=== PATIENT | female | born 1960 | race Caucasian/White ===

== ENCOUNTER → 2021-10-10 09:05 | Outpatient (CLI) | payer BC, SELFPAY ==
--- NOTE | ~2021-10-10 | US_ITS ---
EXAMINATION: US venous doppler UE RT DATE: 10/10/2021 09:37 INDICATION: Basilic vein thrombosis. TECHNIQUE: Grayscale images without and with compression and Doppler images of the right upper extrem ity veins were obtained. COMPARISON: None. FINDINGS: The right internal jugular vein, subclavian vein, axillary vein, brachial vein, basilic vein, cephali c vein, radial vein, and ulnar vein are patent. IMPRESSION: 1. Patent right upper extremity veins. No evidence of venous thrombosis. Reviewed, dictated and finalized at location A. ULIZING MACHINE OPERATOR
== END ==
DX: I82.409 Acute embolism and thrombosis of unspecified deep veins of unspecified lower extremity (principal); I82.611 Acute embolism and thrombosis of superficial veins of right upper extremity
CPT/HCPCS: 93971

== ENCOUNTER → 2021-11-29 09:05 | Outpatient (CLI) | payer BC, SELFPAY ==
--- NOTE | ~2021-11-29 | MR_ITS ---
EXAMINATION: MR MRCP wo/w con/w 3D wo ind DATE: 11/29/2021 10:32 INDICATION: Biliary cirrhosis. TECHNIQUE: Magnetic resonance imaging (MRI) of the abdomen was performed without and with 20 mL Multi Yunior intravenous contrast. Sequences included coronal T2-weighted FS FSE, coronal T2-weighted FSE, a xial T1-weighted LAVA, coronal FS FIESTA, axial dual-echo T1-weighted SPGR, coronal lava-FLEX, sagitt al T2-weighted FSE, axial T2-weighted FSE, and axial DWI. Thick-slab T2-weighted FSE images were obta ined for magnetic resonance cholangiopancreatography (MRCP). Maximum intensity projection 3-D reconst ructions of the volumetric data were created by the technologist. Postcontrast sequences included cor onal LAVA-flex and time course of axial T1-weighted LAVA. COMPARISON: None. FINDINGS: ABDOMEN MRI: The liver demonstrates a nodular surface contour and heterogeneous signal intensity, con sistent with cirrhosis. There is cystic biliary duct dilatation in right hepatic lobe with the larges t cyst measuring 1.8 cm. There is no abnormal arterial hyperenhancement to suggest malignancy. Main p ortal vein and left and right portal veins are small. The gallbladder is absent. There is a 12 mm cys t in the head of the pancreas along the expected course of the common bile duct. There is mild spleno megaly measuring 14.0 cm. There are [place] bodies in the spleen. The adrenal glands and kidneys are normal. There is a splenorenal portacaval shunt. There are no dilated loops of bowel. There are n o pathologically enlarged lymph nodes. There is no free intraperitoneal fluid. There are hemangiomas in the spine. ABDOMEN MRCP: The common duct is small and poorly visualized with maximum diameter of 3 mm. IMPRESSION: 1. Cirrhosis of the liver with portal venous hypertension. 2. 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 Reviewed, dictated and finalized at location A.
[2021-11-29 09:45] LABS: Estimated Glomerular Filt Rate > 60
== END ==
PROVIDERS: Visit Provider Internal Medicine Gastroenterology
DX: K74.4 Secondary biliary cirrhosis (principal); K83.01 Primary sclerosing cholangitis
CPT/HCPCS: 74183; 76376; A9577